=== PATIENT | male | born 2000 | race Caucasian/White ===

== ENCOUNTER 2024-04-09 15:53 | Emergency (ER) | payer OTHER ==
[~2024-04-09] VITALS: Ht 180.3 cm; Wt 106.5 kg
[2024-04-09] MEDS ORDERED: CVSTAB PO (16:03)
[2024-04-09] MEDS: IBUPROFEN 600MG TAB PO ONE (19:37)
[2024-04-09] MEDS ORDERED: IBUP-1022 PO (20:39)
[2024-04-09] MEDS ORDERED: METH-1164 PO (20:39)
[2024-04-09 20:47] VITALS: BP 133/75; TEMP 97.5; O2SAT 98
== END 2024-04-09 20:54 | disposition home or self-care (01) ==
LOC: M ED 15:53
DX: M54.50 Low back pain, unspecified (principal); Z87.820 Personal history of traumatic brain injury; Z91.030 Bee allergy status; Z79.1 Long term (current) use of non-steroidal anti-inflammatories (NSAID); Z79.899 Other long term (current) drug therapy